=== PATIENT | male | born 1930 | race African-American/Black ===

== ENCOUNTER 2017-04-22 21:34 | Inpatient (IN) | payer BC ==
[~2017-04-22] VITALS: Ht 193 cm; Wt 91.1 kg
[~2017-04-22 21:34] MED LIST: CARB25TA PO; CYCL1PAK PO; TAMS0.4C67 PO; VESI5TAB PO; [UNRECOGNIZED DRUG - CODE] PO
[2017-04-22 21:39] VITALS: BP 116/70; PULSE 73; RESP 16; TEMP 97.8; O2SAT 96
[2017-04-22] MEDS ORDERED: MIRA50TA PO (21:57)
[2017-04-22] MEDS ORDERED: CHOL20003 PO (21:57)
[2017-04-22] MEDS ORDERED: VESI10TA PO (21:57)
[2017-04-22] MEDS ORDERED: TAMS0.4C4 PO (21:57)
[2017-04-22] MEDS ORDERED: MIDO5TAB PO (21:57)
[2017-04-22] MEDS ORDERED: RIVA3CAP PO (21:57)
[2017-04-22] MEDS ORDERED: CARB25TA9 PO (21:57)
[2017-04-22] MEDS ORDERED: CYAN1TAB24 PO (21:57)
[2017-04-22] MEDS ORDERED: SODIUM CHLORIDE 0.9% FLUSH 5 ML FLUSH IV FLUSH PRN (22:00)
[2017-04-22] MEDS ORDERED: SODIUM CHLORID 0.9% 500 ML INJ 500 ML IV ONE (22:00)
[2017-04-22 22:15] LABS: BASOPHIL % 0.8 % (0.0-2.0); EOSINOPHIL # 0.1 TH/MM3 (0-0.4); EOSINOPHIL % 2.8 % (0.0-4.0); HEMATOCRIT 32.6 % (39.0-51.0); HEMO FLAGS DIFF FINAL; LYMPH % 43.3 % (9.0-44.0); LYMPHOCYTE # 2.1 TH/MM3 (1.0-4.8); MEAN CELL VOLUME 89.2 FL (80.0-100.0); MEAN CORPUSCULAR HGB CONC 31.4 % (32.0-36.0); MONO % 11.4 % (0.0-8.0); NEUT % 41.7 % (16.0-70.0); PLATELET COUNT 143 TH/MM3 (150-450); RED BLOOD COUNT 3.65 MIL/MM3 (4.50-5.90); RED CELL DISTRIBUTION WIDTH 15.1 % (11.6-17.2); WHITE BLOOD COUNT 4.8 TH/MM3 (4.0-11.0)
[2017-04-22 22:21] LABS: BLOOD, URINE TRACE (NEG); GLUCOSE,URINE NEG (NEG); HYALINE CAST, URINE 1 /lpf (RARE); KETONE, URINE NEG (NEG); MUCUS URINE FEW /lpf (OCC); NITRITE,URINE NEG (NEG); SQUAMOUS EPITHELIAL CELL URINE <1 /hpf (0-5); URINE COLOR YELLOW (YELLW/STRAW)
[2017-04-22 22:22] LABS: COMMENT (UR) CATH-CULT NOT IND; CULTURE IF INDICATED CATH CULTURE NOT IND
[2017-04-22 22:23] LABS: APTT (PATIENT) 27.9 SEC (24.3-30.1); PROTHROMBIN TIME - PATIENT 11.2 SEC (9.8-11.6)
[2017-04-22 22:35] LABS: ALT (GPT) 9 U/L (12-78); ANION GAP 6 MEQ/L (5-15); AST (GOT) 14 U/L (15-37); BICARBONATE 28.1 MEQ/L (21.0-32.0); BLOOD UREA NITROGEN 29 MG/DL (7-18); CHLORIDE 109 MEQ/L (98-107); GLOMERULAR FILTRATION RATE 58 ML/MIN (>89); SODIUM (NA) 143 MEQ/L (136-145)
--- NOTE | 2017-04-22 22:39 | RADRPT ---
EXAM DATE/TIME: 04/22/2017 22:11 [facility] COMPARISON: CHEST SINGLE AP, August 03, 2013, 13:40. INDICATIONS : Syncope MEDICAL HISTORY : Parkinsons disease SURGICAL HISTORY : None. ENCOUNTER: Initial ACUITY: 1 day PAIN SCORE: Non-responsive. LOCATION: Bilateral chest FINDINGS: A single view of the chest demonstrates the lungs to be symmetrically aerated without evidence of mas s, infiltrate or effusion. Mild basilar atelectasis. The cardiomediastinal contours demonstrate tortu ous aorta Osseous structures are intact. CONCLUSION: 1. Minimal basilar atelectasis. Tortuous aorta. No acute findings. Fabio Macedo MD on April 22, 2017 at 22:37 Board Certified Radiologist. This report was verified electronically.
[2017-04-22 22:45] LABS: ALKALINE PHOSPHATASE 82 U/L (45-117); TOTAL BILIRUBIN ADULT 0.3 MG/DL (0.2-1.0)
[2017-04-22 22:52] LABS: CREATINE KINASE 97 U/L (39-308)
--- NOTE | 2017-04-22 23:19 | RADRPT ---
EXAM DATE/TIME: 04/22/2017 22:55 [facility] COMPARISON: CT BRAIN W/O CONTRAST, July 21, 2016, 0:35. INDICATIONS : Altered mental status. RADIATION DOSE: 23.49 CTDIvol (mGy) MEDICAL HISTORY : Cardiovascular disease. Parkinson's. Dementia. SURGICAL HISTORY : None. ENCOUNTER: Initial ACUITY: 1 day PAIN SCALE: 0/10 LOCATION: cranial TECHNIQUE: Multiple contiguous axial images were obtained of the head. Using automated exposure control and adj ustment of the mA and/or kV according to patient size, radiation dose was kept as low as reasonably a chievable to obtain optimal diagnostic quality images. FINDINGS: CEREBRUM: The ventricles are normal for age. No evidence of midline shift, mass lesion, hemorrhage or acute in farction. No extra-axial fluid collections are seen. POSTERIOR FOSSA: The cerebellum and brainstem are intact. The 4th ventricle is midline. The cerebellopontine angle i s unremarkable. EXTRACRANIAL: The visualized portion of the orbits is intact. There are multiple trainee gas collections surroundin g the right lower frontal and parietal bone and extends along the right masseter musculature and monica on of the pterygoid fossa. There are several tiny gas bubbles also noted on the left in the region of the pterygoid fossa and along the masseter muscles. There is no intracranial hemorrhage or fracture. SKULL: The calvaria is intact. No evidence of skull fracture. Opacification of several left ethmoidal air c ells is again noted. This is unchanged. CONCLUSION: 1. No intracranial hemorrhage, mass or evidence of infarction. 2. Multiple tiny gas bubbles in the soft tissues along the lower right frontal and parietal bone as w ell as along the masseter musculature and pterygoid fossa. There are several tiny gas bubbles on the left as well. This is of unclear significance but could represent infection. 3. Stable mucosal thickening in the left ethmoidal air cells. Alex Rae MD on April 22, 2017 at 23:10 Board Certified Radiologist. This report was verified electronically.
[2017-04-22 23:30] VITALS: BP 122/68; PULSE 74; RESP 16; O2SAT 96
--- NOTE | 2017-04-22 23:40 | PD ---
HPI Chief Complaint: Altered Mental Status Time Seen by Provider: 21:47 Travel History International Travel<30 days: No Contact w/Intl Traveler<30days: No Traveled to known affect area: No History of Present Illness HPI Patient is an 87-year-old male brought in by EMS after an episode of left-sided weakness and facial droop. Per EMS, he is eating dinner when he developed left arm and leg weakness as well as a left-sided facial droop and difficulty speaking. EMS arrived and he was beginning to resolve. They found him to be hypotensive, but this improved with IV fluids. Currently his symptoms have resolved and he has no complaints. His daughter says that this happened once before while they were in [place] and they were told it was due to dehydration. She says that he is very susceptible to medications due to his Parkinson's and he was recently using a cream for pain. She otherwise states that he has been in his normal state of health prior to this event. [facility] Past Medical History Arthritis: Yes Autoimmune Disease: No Anxiety: No Depression: No Heart Rhythm Problems: Yes (PVCS) Cancer: No Cardiovascular Problems: Yes High Cholesterol: No Chest Pain: No Congestive Heart Failure: No Dementia: Yes (gayathri body dementia) Diabetes: No Diminished Hearing: No Endocrine: No GERD: No Genitourinary: Yes (ENLARGED PROSTATE) Hiatal Hernia: No Immune Disorder: No Kidney Stones: No Musculoskeletal: Yes (L HIP SURGERY APRIL 06) Neurologic: No Parkinson's Disease: Yes Psychiatric: No Reproductive: No Respiratory: No Renal Failure: No Sickle Cell Disease: No Thyroid Disease: No Ulcer: No Past Surgical History Abdominal Surgery: No AICD: No Arteriovenous Shunt: No Cardiac Surgery: No Ear Surgery: No Endocrine Surgery: No Eye Surgery: Yes (BILATERAL CATARACTS, 2010) Genitourinary Surgery: No Gynecologic Surgery: No Insulin Pump: No Joint Replacement: Yes (LEFT HIP) Oral Surgery: No Pacemaker: No Thoracic Surgery: No Other Surgery: Yes Social History Alcohol Use: No Tobacco Use: No Substance Use: No Allergies-Medications (Allergen,Severity, Reaction): Coded Allergies: No Known Allergies (Unverified , 04/22/17) Reported Meds & Prescriptions Reported Meds & Active Scripts Active Reported B12 (Cyanocobalamin) 1,000 Mcg Tab 1 Tab PO DAILY D3 (Cholecalciferol) 2,000 Unit Cap 1 Cap PO DAILY Tamsulosin (Tamsulosin HCl) 0.4 Mg Cap 0.4 Mg PO BID Rivastigmine 3 Mg Cap 3 Mg PO BIDPC Midodrine 5 Mg Tab 5 Mg PO BID Carbidopa-Levodopa 25-100 Mg Tab 1 Tab PO BID Vesicare (Solifenacin) 10 Mg Tab 10 Mg PO DAILY Myrbetriq (Mirabegron) 50 Mg Tab 50 Mg PO DAILY Review of Systems Except as stated in HPI: all other systems reviewed are Neg General / Constitutional: No: Fever, Chills Eyes: No: Blurred Vision HENT: No: Headaches Cardiovascular: No: Chest Pain or Discomfort Respiratory: No: Cough, Shortness of Breath Gastrointestinal: No: Nausea, Vomiting Genitourinary: No: Dysuria Musculoskeletal: No: Myalgias Skin: No Rash, No Change in Pigmentation Neurologic: No: Weakness, Dizziness Physical Exam Narrative GENERAL: Awake and alert, no acute distress. SKIN: Focused skin assessment warm/dry. No signs of infection. HEAD: Atraumatic. Normocephalic. EYES: Pupils equal and round. No scleral icterus. Extraocular movements intact. ENT: Mucous membranes pink and moist. NECK: Trachea midline. No JVD. CARDIOVASCULAR: Regular rate and rhythm. No murmur appreciated. RESPIRATORY: No accessory muscle use. Clear to auscultation. Breath sounds equal bilaterally. GASTROINTESTINAL: Abdomen soft, non-tender, nondistended. MUSCULOSKELETAL: No obvious deformities. No clubbing. No cyanosis. No edema. NEUROLOGICAL: Awake and alert. No obvious cranial nerve deficits. Motor grossly within normal limits. Normal speech. PSYCHIATRIC: Appropriate mood and affect; insight and judgment normal. Data Data Last Documented VS Vital Signs Date Time Temp Pulse Resp B/P Pulse Ox O2 Delivery O2 Flow Rate FiO2 04/22/17 23:30 74 16 122/68 96 04/22/17 21:46 Room Air 04/22/17 21:39 97.8 Orders Ammonia (04/22/17 21:48) Complete Blood Count With Diff (04/22/17 21:48) Comprehensive Metabolic Panel (04/22/17 21:48) Creatine Kinase (Cpk) (04/22/17 21:48) Prothrombin Time / Inr (Pt) (04/22/17 21:48) Act Partial Throm Time (Ptt) (04/22/17 21:48) Troponin I (04/22/17 21:48) Thyroid Stimulating Hormone (04/22/17 21:48) Urinalysis - C+S If Indicated (04/22/17 21:48) Ua Includes Microscopic (04/22/17 21:48) Lactic Acid Sepsis Protocol (04/22/17 21:48) Chest, Single Ap (04/22/17 21:48) Ct Brain W/O Iv Contrast(Rout) (04/22/17 21:48) Blood Glucose (04/22/17 21:48) Ecg Monitoring (04/22/17 21:48) Iv Access Insert/Monitor (04/22/17 21:48) Oximetry (04/22/17 21:48) Sodium Chloride 0.9% Flush (Ns Flush) (04/22/17 22:00) Sodium Chlorid 0.9% 500 Ml Inj (Ns 500 M (04/22/17 22:00) Aspirin (Aspirin) (04/22/17 23:45) Admit Order (Ed Use Only) (04/23/17 ) Consult Neurology (04/23/17 ) Mri Brain W/O Contrast (04/23/17 ) Labs Laboratory Tests Test 04/22/17 04/22/17 21:55 22:00 White Blood Count 4.8 TH/MM3 Red Blood Count 3.65 MIL/MM3 Hemoglobin 10.2 GM/DL Hematocrit 32.6 % Mean Corpuscular Volume 89.2 FL Mean Corpuscular Hemoglobin 28.0 PG Mean Corpuscular Hemoglobin 31.4 % Concent Red Cell Distribution Width 15.1 % Platelet Count 143 TH/MM3 Mean Platelet Volume 7.2 FL Neutrophils (%) (Auto) 41.7 % Lymphocytes (%) (Auto) 43.3 % Monocytes (%) (Auto) 11.4 % Eosinophils (%) (Auto) 2.8 % Basophils (%) (Auto) 0.8 % Neutrophils # (Auto) 2.0 TH/MM3 Lymphocytes # (Auto) 2.1 TH/MM3 Monocytes # (Auto) 0.6 TH/MM3 Eosinophils # (Auto) 0.1 TH/MM3 Basophils # (Auto) 0.0 TH/MM3 CBC Comment DIFF FINAL Differential Comment Prothrombin Time 11.2 SEC Prothromb Time International 1.0 RATIO Ratio Activated Partial 27.9 SEC Thromboplast Time Sodium Level 143 MEQ/L Potassium Level 4.0 MEQ/L Chloride Level 109 MEQ/L Carbon Dioxide Level 28.1 MEQ/L Anion Gap 6 MEQ/L Blood Urea Nitrogen 29 MG/DL Creatinine 1.40 MG/DL Estimat Glomerular Filtration 58 ML/MIN Rate Random Glucose 97 MG/DL Lactic Acid Level 1.3 mmol/L Calcium Level 8.3 MG/DL Total Bilirubin 0.3 MG/DL Aspartate Amino Transf 14 U/L (AST/SGOT) Alanine Aminotransferase 9 U/L (ALT/SGPT) Alkaline Phosphatase 82 U/L Ammonia 29 MCMOL/L Total Creatine Kinase 97 U/L Troponin I LESS THAN 0.02 NG/ML Total Protein 6.2 GM/DL Albumin 3.1 GM/DL Thyroid Stimulating Hormone 1.290 uIU/ML 3rd Gen Magnesium Level 1.9 MG/DL Urine Color YELLOW Urine Turbidity CLEAR Urine pH 5.0 Urine Specific [place] 1.020 Urine Protein TRACE mg/dL Urine Glucose (UA) NEG mg/dL Urine Ketones NEG mg/dL Urine Occult Blood TRACE Urine Nitrite NEG Urine Bilirubin NEG Urine Urobilinogen LESS THAN 2.0 MG/DL Urine Leukocyte Esterase NEG Urine RBC 7 /hpf Urine WBC 1 /hpf Urine Squamous Epithelial <1 /hpf Cells Urine Hyaline Casts 1 /lpf Urine Mucus FEW /lpf Urine Sperm RARE Microscopic Urinalysis Comment CATH-CULT NOT IND MDM Medical Decision Making Medical Screen Exam Complete: Yes Emergency Medical Condition: Yes Interpretation(s) ECG shows sinus rhythm with frequent PVCs. There is no ST elevation or depression. Differential Diagnosis TIA versus stroke versus sepsis versus electrolyte abnormality Narrative Course Patient is an 87-year-old male who comes in complaining of an episode of left- sided weakness with facial droop and difficulty speaking. On arrival, patient is back to his baseline mental status. Exam shows no neurologic abnormalities. IV established, labs sent. Patient connected to the case monitor. Labs show no acute abnormalities. CT head shows no hemorrhage, no CVA. There is air near the frontal and parietal bone on the right side. It is unclear what the origin of this is. He has no outward signs of infection, no pain to the area, reports no history of trauma there. I spoke with Dr. Burrell of neurology who suggests TIA workup with MRI of the brain and carotid ultrasound. He is given an aspirin. Patient admitted for further management. Dr. Guzman advised of the CT findings. Diagnosis Primary Impression: TIA (transient ischemic attack) Qualified Code: G45.9 - Transient cerebral ischemia, unspecified type Admitting Information Admitting Physician Requests: Admit Condition: Stable Audra Hollins MD Apr 22, 2017 23:40
[2017-04-22] MEDS ORDERED: ASPIRIN 325 MG TAB PO ONE (23:45)
[2017-04-23] VITALS (9 sets, daily range): BP systolic 127–156; BP diastolic 67–92; PULSE 63–87; RESP 16–20; TEMP 95.9–98.2; O2SAT 95–99
[2017-04-23] MEDS ORDERED: NALOXONE HCL 0.4 MG/ML AMP IV PRN (00:15)
[2017-04-23] MEDS ORDERED: ACETAMINOPHEN 325 MG TAB PO PRN (00:15)
[2017-04-23] MEDS ORDERED: ONDANSETRON HCL 4 MG/2 ML VIAL IVP PRN (00:15)
[2017-04-23] MEDS ORDERED: SENNOSIDES 8.6 MG TAB PO PRN (00:15)
[2017-04-23] MEDS ORDERED: MAGNESIUM HYDROXIDE SUSP 30 ML CUP PO PRN (00:15)
[2017-04-23] MEDS ORDERED: SODIUM CHLORIDE 0.9% FLUSH 10 ML FLUSH IV FLUSH PRN (00:15)
[2017-04-23] MEDS ORDERED: BISACODYL 10 MG SUPP RECTAL PRN (00:15)
[2017-04-23] MEDS ORDERED: LACTULOSE SYRUP 20 GM/30 ML CUP PO PRN (00:15)
[2017-04-23] MEDS: HEPARIN SODIUM - SQ 10,000 UNITS/ML VIAL SQ SCH ×2 (00:46→11:59)
[2017-04-23 07:42] LABS: AUTOMATED NEUTROPHIL # 3.6 TH/MM3 (1.8-7.7); BASOPHIL % 0.6 % (0.0-2.0); EOSINOPHIL # 0.1 TH/MM3 (0-0.4); EOSINOPHIL % 2.2 % (0.0-4.0); HEMATOCRIT 30.7 % (39.0-51.0); HEMO FLAGS DIFF FINAL; LYMPHOCYTE # 1.5 TH/MM3 (1.0-4.8); MEAN CELL VOLUME 88.2 FL (80.0-100.0); MEAN CORPUSCULAR HEMOGLOBIN 28.7 PG (27.0-34.0); MEAN CORPUSCULAR HGB CONC 32.5 % (32.0-36.0); MONO % 11.1 % (0.0-8.0); NEUT % 60.1 % (16.0-70.0); PLATELET COUNT 132 TH/MM3 (150-450); RED BLOOD COUNT 3.48 MIL/MM3 (4.50-5.90)
[2017-04-23 08:06] LABS: ALT (GPT) 14 U/L (12-78); ANION GAP 6 MEQ/L (5-15); AST (GOT) 13 U/L (15-37); BICARBONATE 27.4 MEQ/L (21.0-32.0); BLOOD UREA NITROGEN 34 MG/DL (7-18); CHLORIDE 110 MEQ/L (98-107); GLOMERULAR FILTRATION RATE 72 ML/MIN (>89); SODIUM (NA) 143 MEQ/L (136-145)
[2017-04-23 08:09] LABS: ALKALINE PHOSPHATASE 88 U/L (45-117); TOTAL BILIRUBIN ADULT 0.3 MG/DL (0.2-1.0)
[2017-04-23] MEDS: MIDODRINE 5 MG TAB PO SCH ×2 (08:43→21:21)
[2017-04-23] MEDS: CHOLECALCIFEROL (VIT D3) 1000 UNIT TAB PO SCH (08:43)
[2017-04-23] MEDS: DOCUSATE SODIUM 50 MG/SENNA 8.6 MG TAB PO SCH ×2 (08:43→21:21)
[2017-04-23] MEDS: CARBIDOPA/LEVODOPA 25 MG/100 MG TAB PO SCH ×2 (08:43→21:21)
[2017-04-23] MEDS: TAMSULOSIN HCL 0.4 MG CAP PO SCH ×2 (08:43→21:21)
[2017-04-23] MEDS: SODIUM CHLORIDE 0.9% FLUSH 10 ML FLUSH IV FLUSH SCH ×2 (08:43→21:21)
[2017-04-23] MEDS: CYANOCOBALAMIN 100 MCG TAB PO SCH (09:00)
[2017-04-23] MEDS: TOLTERODINE TARTRATE 4 MG CAP LA PO SCH (09:00)
[2017-04-23] MEDS: RIVASTIGMINE 9.5 MG/24 HOUR PATCH T-DERMAL SCH (09:00)
[2017-04-23] MEDS: PT OWN MYRBETRIQ 50 MG PO SCH (09:00)
--- NOTE | 2017-04-23 09:36 | EKG ---
Date Performed: 04/22/2017 Time Performed: 21:46:04 PTAGE: 87 years EKG: Sinus rhythm WITH FREQUENT VENTRICULAR PREMATURE COMPLEXES MODERATE INTRAVENTRICULAR CONDUCTION DELAY NONSPECIFIC ST & T-WAVE ABNORMALITY ABNORMAL RHYTHM ECG PREVIOUS TRACING : 07/20/2016 23.55 DOCTOR: Henry Hernandez Interpretating Date/Time 04/23/2017 09:31:44
--- NOTE | 2017-04-23 09:53 | HHI.HP ---
History of Present Illness Service INTERNAL MEDICINE Primary Care Physician MANOLO GUZMAN MD Admission Diagnosis TIA Diagnoses: History of Present Illness This patient is an 87 year old Black male who acutely had left facial droop and difficulty for his speech. Soon after, it was noticed that he had weakness for use of the left side of his body. These occurrences happened while eating. The family noticed that he did not show any signs of improving and emergency services was called. He was found to be with low blood pressure and was given intravenous hydration. By the time he arrived to the emergency room, his blood pressure was better and the deficits were improved. He is admitted for further assessment of his status of possible T. I. A. presentation. There is denial of any recent major illness, infection or trauma. Review of Systems Gastrointestinal: COMPLAINS OF: Constipation Genitourinary: COMPLAINS OF: Urgency, Nocturia Musculoskeletal: COMPLAINS OF: Joint pain, Stiffness Past Family Social History Allergies: Coded Allergies: No Known Allergies (Unverified , 04/22/17) Past Medical History 1. Parkinson's Disease. 2. Hypertension. 3. Hyperlipidemia. 4. Paroxysmal Atrial Fibrillation. 5. Advanced Osteoarthritis. 6. Benign Prostatic Hypertrophy. 7. Chronic Constipation. 8. Vitamin D Deficiency. 9. Vitamin B12 Deficiency. Past Surgical History 1. Left Hip Replacement 2. Blateral Knee Replacements 3. Bilateral Cataract Surgery Family History Some family members with hypertension and advanced osteoarthritis. 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 He is and lives at home with his . He is a nonsmoker, but did smoke previously and discontinued cigarette use in 1960. He drinks alcohol only in limited quantity and only at very special occasions rarely. He makes no use of recreational drugs. Physical Exam Vital Signs Vital Signs Date Time Temp Pulse Resp B/P Pulse Ox O2 Delivery O2 Flow Rate FiO2 04/23/17 08:24 98.0 72 18 150/88 97 04/23/17 07:16 68 04/23/17 04:07 98.2 80 20 144/78 96 04/23/17 02:18 95.9 87 18 129/75 95 04/23/17 00:30 71 16 130/67 95 04/22/17 23:30 74 16 122/68 96 04/22/17 21:46 96 Room Air 04/22/17 21:39 97.8 73 16 116/70 96 Physical Exam GENERAL: This is a well-nourished, well-developed patient. He is alert and in no apparent distress. SKIN: No rashes, ecchymoses or lesions. Cool and dry. HEAD: Atraumatic. Normocephalic. No temporal or scalp tenderness. EYES: Pupils equal round and reactive. Extraocular motions intact. No scleral icterus. No injection or drainage. ENT: Nasal passages are clear. Throat without erythema, tonsillar hypertrophy or exudate. Uvula midline. Airway patent. Gag reflex is intact. Tongue protrudes in the midline. NECK: Trachea midline. No JVD or lymphadenopathy. Supple, nontender, no meningeal signs. No carotid bruits or jugular venous distention. CARDIOVASCULAR: Regular rate and rhythm to exam. There are no gallops, or rubs. RESPIRATORY: Clear to auscultation. Breath sounds equal bilaterally. No wheezes , rales, or rhonchi. GASTROINTESTINAL: Abdomen soft, non-tender, nondistended. No hepato-splenomegaly , or palpable masses. No guarding. MUSCULOSKELETAL: Extremities without clubbing, cyanosis, or edema. No calf tenderness. Negative Homans sign bilaterally. NEUROLOGICAL: Awake and alert. Cranial nerves II through XII intact. Motor and sensory grossly within normal limits. Five out of 5 muscle strength in all muscle groups. Normal speech. Laboratory Laboratory Tests Test 04/22/17 04/22/17 04/23/17 21:55 22:00 06:47 White Blood Count 4.8 6.0 Red Blood Count 3.65 3.48 Hemoglobin 10.2 10.0 Hematocrit 32.6 30.7 Mean Corpuscular Volume 89.2 88.2 Mean Corpuscular Hemoglobin 28.0 28.7 Mean Corpuscular Hemoglobin 31.4 32.5 Concent Red Cell Distribution Width 15.1 15.0 Platelet Count 143 132 Mean Platelet Volume 7.2 7.4 Neutrophils (%) (Auto) 41.7 60.1 Lymphocytes (%) (Auto) 43.3 26.0 Monocytes (%) (Auto) 11.4 11.1 Eosinophils (%) (Auto) 2.8 2.2 Basophils (%) (Auto) 0.8 0.6 Neutrophils # (Auto) 2.0 3.6 Lymphocytes # (Auto) 2.1 1.5 Monocytes # (Auto) 0.6 0.7 Eosinophils # (Auto) 0.1 0.1 Basophils # (Auto) 0.0 0.0 CBC Comment DIFF FINAL DIFF FINAL Differential Comment Prothrombin Time 11.2 Prothromb Time International 1.0 Ratio Activated Partial 27.9 Thromboplast Time Sodium Level 143 143 Potassium Level 4.0 4.0 Chloride Level 109 110 Carbon Dioxide Level 28.1 27.4 Anion Gap 6 6 Blood Urea Nitrogen 29 34 Creatinine 1.40 1.16 Estimat Glomerular Filtration 58 72 Rate Random Glucose 97 86 Lactic Acid Level 1.3 Calcium Level 8.3 8.6 Total Bilirubin 0.3 0.3 Aspartate Amino Transf 14 13 (AST/SGOT) Alanine Aminotransferase 9 14 (ALT/SGPT) Alkaline Phosphatase 82 88 Ammonia 29 Total Creatine Kinase 97 Troponin I LESS THAN 0.02 Total Protein 6.2 5.7 Albumin 3.1 2.8 Thyroid Stimulating Hormone 1.290 3rd Gen Magnesium Level 1.9 Urine Color YELLOW Urine Turbidity CLEAR Urine pH 5.0 Urine Specific [place] 1.020 Urine Protein TRACE Urine Glucose (UA) NEG Urine Ketones NEG Urine Occult Blood TRACE Urine Nitrite NEG Urine Bilirubin NEG Urine Urobilinogen LESS THAN 2.0 Urine Leukocyte Esterase NEG Urine RBC 7 Urine WBC 1 Urine Squamous Epithelial <1 Cells Urine Hyaline Casts 1 Urine Mucus FEW Urine Sperm RARE Microscopic Urinalysis Comment CATH-CULT NOT IND Result Diagram: 04/23/1747 04/23/1747 Assessment and Plan Assessment and Plan ASSESSMENT 1. Transient Ischemic Attack. 2. 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 3. Parkinson's Disease. 4. Chronic Constipation. 5. Benign Prostatic Hypertrophy. PLAN 1. Admit to the hospital as an Inpatient 2. MRI/MRA study of the Brain. 3. Consultation to Neurology. 4. Bedrest for now. 5. DVT and PE prophylaxis Manolo Guzman MD Apr 23, 2017 09:53
--- NOTE | 2017-04-23 10:49 | RADRPT ---
EXAM DATE/TIME: 04/23/2017 09:05 [facility] COMPARISON: MRI BRAIN W/O CONTRAST, April 07, 2012, 14:13. INDICATIONS : Left sided weakness. MEDICAL HISTORY : Dementia. Hypertension. SURGICAL HISTORY : Detached retina, orthopaedic ENCOUNTER: Initial ACUITY: 1 day PAIN SCORE: 0/10 LOCATION: Cranial TECHNIQUE: Multiplanar, multisequence MRI of the brain was performed without contrast. FINDINGS: There are minimal periventricular white matter changes evident. There is no restricted diffusion hossein dent. Ventricular size is appropriate. There are no extra-axial fluid collections appreciated. The posterior fossa is normal. The orbits and paranasal sinuses are unremarkable. CONCLUSION: Minimal periventricular white matter changes, unchanged from the comparison study. Helder Kilgore MD FACR on April 23, 2017 at 10:45 Board Certified Radiologist. This report was verified electronically.
--- NOTE | 2017-04-23 10:49 | RADRPT ---
EXAM DATE/TIME: 04/23/2017 09:05 [facility] COMPARISON: MRA BRAIN W/O CONTRAST, August 03, 2013, 10:03. INDICATIONS : Left sided weakness. MEDICAL HISTORY : Hypertension. Dementia. SURGICAL HISTORY : Detached retina, orthopaedic ENCOUNTER: Initial ACUITY: 1 day PAIN SCORE: 0/10 LOCATION: cranial Please note a normal MRA of the brain does not entirely exclude the possibility of a small aneurysm, nor the possibility of distal intracranial vessel disease. TECHNIQUE: 3D time of flight MRA was performed. Source images, multiplanar STS MIP, and 3D volume MIP reconstru ctions were reviewed. FINDINGS: There is excellent visualization of the major intracranial arteries out to the second-order branch ve ssels. There is no evidence for aneurysm, vessel truncation or stenosis, and no evidence for vascula r malformation. Minimal cavernous carotid disease is noted worse on the left than the right. CONCLUSION: Minimal cavernous carotid disease worse in the left otherwise negative. Helder Kilgore MD FACR on April 23, 2017 at 10:45 Board Certified Radiologist. This report was verified electronically.
[2017-04-23] MEDS: ASPIRIN 325 MG TAB PO SCH (15:30)
[2017-04-23] MEDS ORDERED: GLUCAGON 1 MG/ML VIAL OTHER PRN (15:30)
[2017-04-23] MEDS ORDERED: DEXTROSE 50% IN WATER 50 ML VIAL(D50) IV PUSH PRN (15:30)
[2017-04-23] MEDS ORDERED: SODIUM CHLORIDE 0.9% FLUSH 5 ML FLUSH IV FLUSH PRN (15:30)
[2017-04-23] MEDS: INSULIN ASPART SUPPLEMENTAL SCALE SQ SCH ×2 (16:00→22:00)
--- NOTE | 2017-04-23 18:06 | MB ---
cc: SAMIRA ACOSTA M.D. DATE OF CONSULTATION: 04/23/2017. REASON FOR CONSULTATION: TIA. HISTORY OF PRESENT ILLNESS: This is a pleasant 87-year-old man who presented with left facial droop, difficulty getting words out and left-sided weakness while he was eating. This has since improved. He came to the emergency room. He was found to be hypotensive and was given IV hydration. PAST MEDICAL HISTORY: 1. Parkinson's disease. 2. Hypertension. 3. Hyperlipidemia. 4. Atrial fibrillation. 5. Osteoarthritis. MEDICATIONS: Current medications are: 1. Sinemet 25/100 twice a day. 2. Midodrine 5 milligrams twice a day. 3. Exelon patch. 4. Tamsulosin. 5. B12. 6. Detrol long-acting. 7. Tylenol and Zofran PRN. 8. Subcutaneous heparin 5000 units twice a day. His EKG now is showing normal sinus rhythm. CT of the brain is normal intracranially. He did have an MRI of the brain with minimal ischemic demyelinization. No acute change present. No acute stroke. MRA brain: Minimal cavernous carotid disease left is worse. LABORATORY DATA: The white count is 6000, hemoglobin 10, hematocrit 30.7%, platelet count 132,000. PT 11.2, INR 1, APTT 27.9. Sodium is 143, potassium is 4, chloride 110, CO2 27, the BUN is 34, creatinine 1.16, GFR 72, glucose 86. Troponin less and 0.02. TSH 1.10. IMPRESSION: Probable TIA. RECOMMENDATIONS: 1. Will check carotid ultrasound and echocardiogram. 2. Monitor cardiac telemetry for now 3. Treat the patient with aspirin. 4. With the history of atrial fibrillation, there is a risk of recurrent atrial fibrillation. Consider anticoagulation; however, he would be at high risk given his Parkinson's disease and advanced age. MD KARL Sahu/GEOVANNA /3:28 PM /6:06 PM
--- NOTE | 2017-04-23 19:33 | RADRPT ---
EXAM DATE/TIME: 04/23/2017 18:53 [facility] COMPARISON: No previous studies available for comparison. INDICATIONS : Cerebrovascular accident. MEDICAL HISTORY : Dementia. Parkinson's. Arthritis. Vertigo. Cardiac disorders. PVCS. Nocturia. Enlarged prostate. 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 SURGICAL HISTORY : Bilateral cataracts. Detached left retina repair. Left hip joint replacement. Bilateral knees. Blood transfusions. ENCOUNTER: Initial ACUITY: 1 day PAIN SCORE: 0/10 LOCATION: Bilateral neck PEAK SYSTOLIC VELOCITIES (cm/sec): ICA/CCA RATIO: Right: 1.2 Left: 0.7 ICA: Right: 84 Left: 66 CCA: Right: 69 Left: 89 ECA: Right: 109 Left: 98 VERTEBRAL: Right: 49 antegrade Left: 44 antegrade Elevated flow velocities and ICA/CCA ratios have been found to correlate with increased degrees of vessel stenosis, calculated as percentage of diameter relative to a normal segment of distal ICA/CCA FINDINGS: RIGHT CAROTID: Noncalcified atheromatous plaque. Most pronounced within the ICA. No significant stenosis is visualiz ed. The waveforms are within normal limits. LEFT CAROTID: No significant stenosis is visualized. The waveforms are within normal limits. VERTEBRAL ARTERIES: Antegrade flow is seen in both vertebral arteries. MISCELLANEOUS: None. CONCLUSION: 1. Mild plaque with patent carotid arteries bilaterally. 2. Antegrade flow involving both vertebral arteries. 3. Irregular heartbeat. Mert Dalal Jr., MD on April 23, 2017 at 19:29 Board Certified Radiologist. This report was verified electronically.
[2017-04-23] MEDS: SODIUM CHLORIDE 0.9% FLUSH 5 ML FLUSH IV FLUSH SCH (21:00)
[2017-04-24] VITALS (7 sets, daily range): BP systolic 98–152; BP diastolic 62–92; PULSE 57–67; RESP 20; TEMP 95.9–98.6; O2SAT 95–98
[2017-04-24] MEDS: HEPARIN SODIUM - SQ 10,000 UNITS/ML VIAL SQ SCH ×2 (00:38→12:23)
[2017-04-24] MEDS: INSULIN ASPART SUPPLEMENTAL SCALE SQ SCH ×3 (06:36→16:00)
[2017-04-24] MEDS: TAMSULOSIN HCL 0.4 MG CAP PO SCH (08:27)
[2017-04-24] MEDS: CYANOCOBALAMIN 100 MCG TAB PO SCH (08:27)
[2017-04-24] MEDS: CARBIDOPA/LEVODOPA 25 MG/100 MG TAB PO SCH (08:27)
[2017-04-24] MEDS: CHOLECALCIFEROL (VIT D3) 1000 UNIT TAB PO SCH (08:28)
[2017-04-24] MEDS: MIDODRINE 5 MG TAB PO SCH (08:28)
[2017-04-24] MEDS: TOLTERODINE TARTRATE 4 MG CAP LA PO SCH (08:28)
[2017-04-24] MEDS: ASPIRIN 325 MG TAB PO SCH (08:28)
[2017-04-24] MEDS: DOCUSATE SODIUM 50 MG/SENNA 8.6 MG TAB PO SCH (08:29)
[2017-04-24] MEDS: SODIUM CHLORIDE 0.9% FLUSH 10 ML FLUSH IV FLUSH SCH (08:31)
[2017-04-24] MEDS: RIVASTIGMINE 9.5 MG/24 HOUR PATCH T-DERMAL SCH (08:31)
[2017-04-24] MEDS: SODIUM CHLORIDE 0.9% FLUSH 5 ML FLUSH IV FLUSH SCH (08:32)
[2017-04-24] MEDS: PT OWN MYRBETRIQ 50 MG PO SCH (09:00)
[2017-04-24 09:34] LABS: HDL CHOLESTEROL 80.7 MG/DL (40.0-60.0)
--- NOTE | 2017-04-24 11:41 | EKG ---
Date Performed: 04/23/2017 Time Performed: 22:06:03 PTAGE: 87 years EKG: Sinus rhythm WITH OCCASIONAL VENTRICULAR PREMATURE COMPLEXES INCOMPLETE RIGHT BUNDLE BRANCH BLOCK NONSPECIFIC T-W AVE ABNORMALITY Since previous tracing, no significant change noted BORDERLINE ECG PREVIOUS TRACING : 04/22/2017 21.46 DOCTOR: Scott Dotson Interpretating Date/Time 04/24/2017 11:39:20
--- NOTE | 2017-04-24 12:43 | ECHRPT ---
Indication: CVA/TIA CONCLUSIONS Normal left ventricular size. Mild concentric left ventricular hypertrophy. The left ventricular systolic function is normal with an estimated ejection fraction in the range of 55-60%. Doppler parameters are consistent with impaired left ventricular relaxtion (grade 1 diastolic dysfun ction). Trace mitral valve regurgitation. There is trace tricuspid valve regurgitation. There is estimated moderate pulmonary hypertension present (51 mmHg). The pulmonary valve is not well visualized. There is a trivial pericardial effusion present. No hemodynamically significant echocardiographic fe atures were observed (no pre-tamponade physiology). BP: 152 / 92 HR: 72 Rhythm: Other MEASUREMENTS (Male / Female) Normal Values Technical Quality:Technically difficult study 2D ECHO LV Diastolic Diameter PLAX 5.0 cm 4.2 - 5.9 / 3.9 - 5.3 cm LV Systolic Diameter PLAX 4.1 cm IVS Diastolic Thickness 1.0 cm 0.6 - 1.0 / 0.6 - 0.9 cm LVPW Diastolic Thickness 0.8 cm 0.6 - 1.0 / 0.6 - 0.9 cm LV Relative Wall Thickness 0.4 RV Internal Dim ED PLAX 2.4 cm DOPPLER AV Peak Velocity 171.0 cm/s AV Peak Gradient 11.7 mmHg LVOT Peak Velocity 100.0 cm/s LVOT Peak Gradient 4.0 mmHg Mitral E Point Velocity 71.6 cm/s Mitral A Point Velocity 104.0 cm/s Mitral E to A Ratio 0.7 LV E' Lateral Velocity 10.2 cm/s Mitral E to LV E' Lateral Ratio 7.0 LV E' Septal Velocity 8.2 cm/s Mitral E to LV E' Septal Ratio 8.7 TR Peak Velocity 319.0 cm/s TR Peak Gradient 40.7 mmHg FINDINGS LEFT VENTRICLE Normal left ventricular size. Mild concentric left ventricular hypertrophy. The left ventricular systolic function is normal with an estimated ejection fraction in the range of 55-60%. Doppler parameters are consistent with impaired left ventricular relaxtion (grade 1 diastolic dysfun ction). RIGHT VENTRICLE Normal right ventricular size and systolic function. LEFT ATRIUM The left atrial size is normal. RIGHT ATRIUM The right atrial size is normal. ATRIAL SEPTUM Normal atrial septal thickness without atrial level shunting by limited color doppler interrogation. AORTA The aortic root and proximal ascending aorta are normal in size on limited imaging. MITRAL VALVE Structurally normal mitral valve. Trace mitral valve regurgitation. AORTIC VALVE Trileaflet aortic valve. No aortic valve stenosis or regurgitation. TRICUSPID VALVE Structurally normal tricuspid valve. There is trace tricuspid valve regurgitation. There is estimated moderate pulmonary hypertension present (51 mmHg). PULMONARY VALVE The pulmonary valve is not well visualized. VESSELS The inferior vena cava is normal in size. PERICARDIUM There is a trivial pericardial effusion present. No hemodynamically significant echocardiographic fe atures were observed (no pre-tamponade physiology). Henry Hernandez MD, FACC (Electronically Signed) Final Date:24 April 2017 12:42
[2017-04-24 16:57] LABS: HEMOGLOBIN A1a 1.5 %; HEMOGLOBIN A1b 0.9 %; HEMOGLOBIN Ao 84.9 %; HEMOGLOBIN F 0.7 %; HEMOGLOBIN LA1C 1.5 %; HEMOGLOBIN P3 3.8 %
--- NOTE | 2017-04-24 17:33 | HHI.PR ---
Subjective Remarks I discussed his status with the Neurologist and decision is made for him to be placed on Plavix with low dose 81 mg Aspirin. There are no other adverse changes are reported. He is stable to go home today. Objective - Vital Signs Date Time Temp Pulse Resp B/P Pulse Ox O2 Delivery O2 Flow Rate FiO2 04/24/17 16:44 97.3 67 20 109/71 97 04/24/17 14:11 95.9 66 20 98/62 98 04/24/17 10:25 95 21 04/24/17 08:22 96.4 57 20 144/86 97 04/24/17 08:00 60 04/24/17 04:00 97.4 63 20 143/90 97 04/24/17 01:00 98.6 60 20 152/92 97 04/23/17 20:06 97.8 63 20 156/92 99 04/23/17 20:00 69 I/O 04/23/17 04/23/17 04/23/17 04/24/17 04/24/17 04/24/17 07:00 15:00 23:00 07:00 15:00 23:00 Intake Total 500 ml 360 ml 240 ml Output Total 0 ml 900 ml 400 ml 300 ml Balance 500 ml -540 ml -160 ml -300 ml Intake Oral 0 ml 360 ml 240 ml IV Total 500 ml Output Urine Total 0 ml 900 ml 400 ml 300 ml # Voids 1 1 # Bowel Movements 0 0 Result Diagram: 04/23/17 0647 04/23/17 0647 A/P Assessment and Plan ASSESSMENT 1. Transient Ischemic Attack. CURRENT STATUS IS STABLE. PLAN 1. Plavix 75 mg daily with Aspirin 81 mg daily. OKAY TO GO HOME TODAY. Manolo Guzman MD Apr 24, 2017 17:33
[2017-04-24] MEDS ORDERED: PLAV75TA29 PO (17:41)
[2017-04-25] MEDS ORDERED: CLOPIDOGREL 75 MG TAB PO SCH (09:00)
== END 2017-04-24 20:41 | disposition home or self-care (01) | DRG 69 ==
LOC: NEPC 21:34 → NEDA 04-23 00:06 → N05A 04-23 01:28
PROVIDERS: ADMIT Internal Medicine; ATTEND Internal Medicine
DX: G45.9 Transient cerebral ischemic attack, unspecified (principal); G31.83 Neurocognitive disorder with Lewy bodies; I48.0 Paroxysmal atrial fibrillation; G37.8 Other specified demyelinating diseases of central nervous system; F02.80 Dementia in other diseases classified elsewhere, unspecified severity, without behavioral disturbance, psychotic disturbance, mood disturbance, and anxiety; I10 Essential (primary) hypertension; E55.9 Vitamin D deficiency, unspecified; E53.8 Deficiency of other specified B group vitamins; R29.810 Facial weakness; D63.8 Anemia in other chronic diseases classified elsewhere; N40.0 Benign prostatic hyperplasia without lower urinary tract symptoms; E78.5 Hyperlipidemia, unspecified; K59.09 Other constipation; M62.81 Muscle weakness (generalized); M19.90 Unspecified osteoarthritis, unspecified site; Z87.891 Personal history of nicotine dependence; Z96.653 Presence of artificial knee joint, bilateral; Z96.642 Presence of left artificial hip joint
CPT/HCPCS: 70450; 70544; 70551; 71010; 80053; 80061; 81001; 82140; 82550; 82948; 83036; 83605; 83735; 84443; 84484; 85025; 85610; 85730; 93005; 93306; 93880; 96360; J1644; J7040

== ENCOUNTER 2017-06-08 21:16 | Emergency (ER) | payer MEDICARE, BC ==
[~2017-06-08] VITALS: Ht 188 cm; Wt 100.0 kg
[~2017-06-08 21:16] MED LIST changes: -CARB25TA PO; +CARB25TA9 PO; +CHOL20003 PO; +CYAN1TAB24 PO; -CYCL1PAK PO; +MIDO5TAB PO; +MIRA50TA PO; +PLAV75TA29 PO; +RIVA3CAP PO; +TAMS0.4C4 PO; -TAMS0.4C67 PO; +VESI10TA PO; -VESI5TAB PO; -[UNRECOGNIZED DRUG - CODE] PO
[2017-06-08 21:26] VITALS: BP 161/97; PULSE 72; RESP 18; O2SAT 98
[2017-06-08 21:31] VITALS: O2SAT 98
--- NOTE | 2017-06-08 21:43 | PD ---
HPI Chief Complaint: Altered Mental Status Time Seen by Provider: 21:40 Travel History International Travel<30 days: No Contact w/Intl Traveler<30days: No Traveled to known affect area: No History of Present Illness HPI 87-year-old male that presents to the ED for evaluation of possible syncope versus altered mental status. Patient apparently was acting his normal during the early he had an episode where he stopped speaking and he went interactive with anybody. Patient appeared to be very pale. Ambulance was called and when they got there his blood pressure was low. Patient was given IV fluids and for the most part came back to normal. He denies any other medical issues. He was seen here in April for a TIA had workup for this. He denies any pain of any kind. No chest pain or shortness of breath. Patient is somewhat of a poor historian and most of the history is obtained from the family. He does have a history of dementia. Patient currently back to baseline. Patient did not fell or hit his head. He does apparently take Plavix. No allergies to medication. No numbness, tilling, weakness. He does have a history of Parkinson's. PFSH Past Medical History Arthritis: Yes (KNEES) Autoimmune Disease: No Anxiety: No Depression: No Heart Rhythm Problems: Yes (PVCS) Cancer: No Cardiovascular Problems: Yes High Cholesterol: No Chest Pain: No Congestive Heart Failure: No Dementia: Yes (gayathri body dementia) Diabetes: No Diminished Hearing: No Endocrine: No Gastrointestinal Disorders: Yes GERD: No Genitourinary: Yes (ENLARGED PROSTATE) Hiatal Hernia: No Heparin Induced Thrombocytopen: No Hypertension: No Immune Disorder: No Implanted Vascular Access Dvce: No Kidney Stones: No Musculoskeletal: Yes (L HIP SURGERY APRIL 06) Neurologic: Yes (VERTIGO -- PARKINSONS) Parkinson's Disease: Yes Psychiatric: No Reproductive: No Respiratory: No Renal Failure: No Sickle Cell Disease: No Thyroid Disease: No Ulcer: No Past Surgical History Abdominal Surgery: No AICD: No Arteriovenous Shunt: No Cardiac Surgery: No Ear Surgery: No Endocrine Surgery: No Eye Surgery: Yes (BILATERAL CATARACTS, 2010) Genitourinary Surgery: No Gynecologic Surgery: No Insulin Pump: No Joint Replacement: Yes (LEFT HIP) Neurologic Surgery: No Oral Surgery: No Pacemaker: No Thoracic Surgery: No Other Surgery: Yes Social History Alcohol Use: No Tobacco Use: No Substance Use: No Allergies-Medications (Allergen,Severity, Reaction): Coded Allergies: No Known Allergies (Unverified , 04/22/17) Reported Meds & Prescriptions Reported Meds & Active Scripts Active Plavix (Clopidogrel Bisulfate) 75 Mg Tab 75 Mg PO DAILY Reported B12 (Cyanocobalamin) 1,000 Mcg Tab 1 Tab PO DAILY D3 (Cholecalciferol) 2,000 Unit Cap 1 Cap PO DAILY Tamsulosin (Tamsulosin HCl) 0.4 Mg Cap 0.4 Mg PO BID Rivastigmine 3 Mg Cap 3 Mg PO BIDPC Midodrine 5 Mg Tab 5 Mg PO BID Carbidopa-Levodopa 25-100 Mg Tab 1 Tab PO BID Vesicare (Solifenacin) 10 Mg Tab 10 Mg PO DAILY Myrbetriq (Mirabegron) 50 Mg Tab 50 Mg PO DAILY Review of Systems Except as stated in HPI: all other systems reviewed are Neg Physical Exam Narrative GENERAL: SKIN: Warm and dry. HEAD: Atraumatic. Normocephalic. EYES: Pupils equal and round 4 mm reactive to light and accommodation. No scleral icterus. No injection or drainage. ENT: No nasal bleeding or discharge. Mucous membranes pink and moist. Tongue is midline. No uvula deviation. NECK: Trachea midline. No JVD. CARDIOVASCULAR: Regular rate and rhythm. No murmurs, S3, S4. RESPIRATORY: No accessory muscle use. Clear to auscultation. Breath sounds equal bilaterally. GASTROINTESTINAL: Abdomen soft, non-tender, nondistended. Hepatic and splenic margins not palpable. MUSCULOSKELETAL: Extremities without clubbing, cyanosis, or edema. No obvious deformities. Full range of motion of the upper and lower extremities bilaterally. 2+ pulses bilaterally. NEUROLOGICAL: Awake and alert. No obvious cranial nerve deficits. Motor grossly within normal limits. Five out of 5 muscle strength in the arms and legs. Normal speech. PSYCHIATRIC: Appropriate mood and affect; insight and judgment normal. Data Data Last Documented VS Vital Signs Date Time Temp Pulse Resp B/P Pulse Ox O2 Delivery O2 Flow Rate FiO2 06/08/17 21:31 98 Room Air 06/08/17 21:26 72 18 161/97 Orders Electrocardiogram (06/08/17 21:27) Complete Blood Count With Diff (06/08/17 21:27) Comprehensive Metabolic Panel (06/08/17 21:27) Ckmb (Isoenzyme) Profile (06/08/17 21:27) Troponin I (06/08/17 21:27) Prothrombin Time / Inr (Pt) (06/08/17 21:27) Act Partial Throm Time (Ptt) (06/08/17 21:27) Urinalysis - C+S If Indicated (06/08/17 21:27) Magnesium (Mg) (06/08/17 21:27) Thyroid Stimulating Hormone (06/08/17 21:27) Chest, Single Ap (06/08/17 21:27) Ct Brain W/O Iv Contrast(Rout) (06/08/17 21:27) Iv Access Insert/Monitor (06/08/17 21:27) Ecg Monitoring (06/08/17:) Oximetry (06/08/17:) Labs Laboratory Tests Test 06/08/17 21:40 White Blood Count 5.9 TH/MM3 Red Blood Count 3.73 MIL/MM3 Hemoglobin 10.8 GM/DL Hematocrit 33.6 % Mean Corpuscular Volume 90.1 FL Mean Corpuscular Hemoglobin 28.9 PG Mean Corpuscular Hemoglobin 32.1 % Concent Red Cell Distribution Width 15.0 % Platelet Count 161 TH/MM3 Mean Platelet Volume 7.1 FL Neutrophils (%) (Auto) 50.7 % Lymphocytes (%) (Auto) 35.4 % Monocytes (%) (Auto) 10.6 % Eosinophils (%) (Auto) 2.4 % Basophils (%) (Auto) 0.9 % Neutrophils # (Auto) 3.0 TH/MM3 Lymphocytes # (Auto) 2.1 TH/MM3 Monocytes # (Auto) 0.6 TH/MM3 Eosinophils # (Auto) 0.1 TH/MM3 Basophils # (Auto) 0.1 TH/MM3 CBC Comment DIFF FINAL Differential Comment Prothrombin Time 11.2 SEC Prothromb Time International 1.0 RATIO Ratio Activated Partial 27.4 SEC Thromboplast Time MDM Medical Decision Making Medical Screen Exam Complete: Yes Emergency Medical Condition: Yes Medical Record Reviewed: Yes Interpretation(s) EKG shows sinus rhythm with some bigeminy and otherwise unremarkable. No sign of ischemia. Read by me and attending. Differential Diagnosis Syncope versus altered mental status versus TIA versus CVA versus hypotension Narrative Course 87-year-old male that presents to the ED for evaluation of possible syncope. Patient was properly examined and was found to have signs and symptoms consistent with possible syncope from hypotension. probably related to hypotension. Patient appears to be back to baseline. Labs and imaging ordered. He does take Plavix. No head injury. Labs and imaging results still pending. Will sign out to my attending pending results and disposition. Jose Maria Phillips Jun 08, 2017 21:43
--- NOTE | 2017-06-08 21:57 | RADRPT ---
EXAM DATE/TIME: 06/08/2017 21:24 [facility] COMPARISON: CHEST SINGLE AP, April 22, 2017, 22:11. INDICATIONS : Syncope MEDICAL HISTORY : Parkinsons disease SURGICAL HISTORY : None. ENCOUNTER: Initial ACUITY: 1 day PAIN SCORE: 0/10 LOCATION: chest FINDINGS: A single view of the chest demonstrates tortuous aorta. No focal consolidation or significant effusio n. No pneumothorax. CONCLUSION: 1. Tortuous aorta. Minimal basal atelectasis. No effusion or pneumothorax. Fabio Macedo MD on June 08, 2017 at 21:55 Board Certified Radiologist. This report was verified electronically.
[2017-06-08 22:15] LABS: BASOPHIL # 0.1 TH/MM3 (0-0.2); BASOPHIL % 0.9 % (0.0-2.0); EOSINOPHIL # 0.1 TH/MM3 (0-0.4); EOSINOPHIL % 2.4 % (0.0-4.0); HEMATOCRIT 33.6 % (39.0-51.0); HEMO FLAGS DIFF FINAL; LYMPH % 35.4 % (9.0-44.0); LYMPHOCYTE # 2.1 TH/MM3 (1.0-4.8); MEAN CELL VOLUME 90.1 FL (80.0-100.0); MEAN CORPUSCULAR HEMOGLOBIN 28.9 PG (27.0-34.0); MEAN CORPUSCULAR HGB CONC 32.1 % (32.0-36.0); MONO % 10.6 % (0.0-8.0); NEUT % 50.7 % (16.0-70.0); PLATELET COUNT 161 TH/MM3 (150-450); RED BLOOD COUNT 3.73 MIL/MM3 (4.50-5.90); WHITE BLOOD COUNT 5.9 TH/MM3 (4.0-11.0)
[2017-06-08 22:26] LABS: APTT (PATIENT) 27.4 SEC (24.3-30.1); PROTHROMBIN TIME - PATIENT 11.2 SEC (9.8-11.6)
[2017-06-08 22:37] LABS: ALT (GPT) 6 U/L (12-78); ANION GAP 9 MEQ/L (5-15); AST (GOT) 14 U/L (15-37); BICARBONATE 24.7 MEQ/L (21.0-32.0); BLOOD UREA NITROGEN 32 MG/DL (7-18); CHLORIDE 105 MEQ/L (98-107); GLOMERULAR FILTRATION RATE 51 ML/MIN (>89); MAGNESIUM 2.2 MG/DL (1.5-2.5); POTASSIUM 4.4 MEQ/L (3.5-5.1); SODIUM (NA) 139 MEQ/L (136-145)
--- NOTE | 2017-06-08 22:42 | RADRPT ---
EXAM DATE/TIME: 06/08/2017 22:19 [facility] COMPARISON: CT BRAIN W/O CONTRAST, April 22, 2017, 22:55. INDICATIONS : Syncopal episode. Altered mental status. RADIATION DOSE: 56.35 CTDIvol (mGy) MEDICAL HISTORY : Dementia. Parkinsons. SURGICAL HISTORY : None. ENCOUNTER: Initial ACUITY: 1 day PAIN SCALE: 0/10 LOCATION: cranial TECHNIQUE: Multiple contiguous axial images were obtained of the head. Using automated exposure control and adj ustment of the mA and/or kV according to patient size, radiation dose was kept as low as reasonably a chievable to obtain optimal diagnostic quality images. DICOM format image data is available electro nically for review and comparison. FINDINGS: CEREBRUM: The ventricles are normal for age. No evidence of midline shift, mass lesion, hemorrhage or acute in farction. No extra-axial fluid collections are seen. POSTERIOR FOSSA: The cerebellum and brainstem are intact. The 4th ventricle is midline. The cerebellopontine angle i s unremarkable. EXTRACRANIAL: The visualized portion of the orbits is intact. SKULL: The calvaria is intact. No evidence of skull fracture. CONCLUSION: 1. No acute intracranial abnormalities. Because of thickening left ethmoid air cells. Fabio Macedo MD on June 08, 2017 at 22:39 Board Certified Radiologist. This report was verified electronically.
[2017-06-08 22:47] LABS: ALKALINE PHOSPHATASE 91 U/L (45-117); CREATINE KINASE 122 U/L (39-308); TOTAL BILIRUBIN ADULT 0.3 MG/DL (0.2-1.0)
[2017-06-08 23:00] LABS: CKMB 1.3 NG/ML (0.5-3.6)
[2017-06-08 23:03] VITALS: BP_SYST 125; BP_SYST 126; BP_DIAS 62; BP_DIAS 71; RESP 16
[2017-06-09 00:10] LABS: BLOOD, URINE TRACE (NEG); COMMENT (UR) CULT NOT INDICATED; CULTURE IF INDICATED CULT NOT INDICATED; GLUCOSE,URINE NEG (NEG); KETONE, URINE NEG (NEG); MUCUS URINE FEW /lpf (OCC); NITRITE,URINE NEG (NEG); PH, URINE 5.5 (5.0-8.5); SQUAMOUS EPITHELIAL CELL URINE <1 /hpf (0-5); URINE COLOR YELLOW (YELLW/STRAW)
--- NOTE | 2017-06-09 00:24 | PD ---
Physical Exam Date Seen by Provider: Jun 09, 2017 Narrative Care was assumed from JASON De La Garza at 11 PM pending workup. Family reports that the patient is back to baseline. They would like to take him home. They state that he has had episodes like this before. They have a good relationship with his primary care provider and can follow up in the near future with him. Data Data Last Documented VS Vital Signs Date Time Temp Pulse Resp B/P Pulse Ox O2 Delivery O2 Flow Rate FiO2 06/08/17 23:03 70 16 126/62 73 16 128/73 88 16 125/71 06/08/17 21:31 98 Room Air Orders Electrocardiogram (06/08/17 21:27) Complete Blood Count With Diff (06/08/17 21:27) Comprehensive Metabolic Panel (06/08/17 21:27) Ckmb (Isoenzyme) Profile (06/08/17 21:27) Troponin I (06/08/17 21:27) Prothrombin Time / Inr (Pt) (06/08/17 21:27) Act Partial Throm Time (Ptt) (06/08/17 21:27) Urinalysis - C+S If Indicated (06/08/17 21:27) Magnesium (Mg) (06/08/17 21:27) Thyroid Stimulating Hormone (06/08/17 21:27) Chest, Single Ap (06/08/17 21:27) Ct Brain W/O Iv Contrast(Rout) (06/08/17 21:27) Iv Access Insert/Monitor (06/08/17 21:27) Ecg Monitoring (06/08/17 21:27) Oximetry (06/08/17 21:27) Orthostatic Vital Signs (06/08/17 22:27) CKMB (06/08/17 21:40) CKMB% (06/08/17 21:40) Labs Laboratory Tests Test 06/08/17 06/08/17 21:40 23:46 White Blood Count 5.9 TH/MM3 Red Blood Count 3.73 MIL/MM3 Hemoglobin 10.8 GM/DL Hematocrit 33.6 % Mean Corpuscular Volume 90.1 FL Mean Corpuscular Hemoglobin 28.9 PG Mean Corpuscular Hemoglobin 32.1 % Concent Red Cell Distribution Width 15.0 % Platelet Count 161 TH/MM3 Mean Platelet Volume 7.1 FL Neutrophils (%) (Auto) 50.7 % Lymphocytes (%) (Auto) 35.4 % Monocytes (%) (Auto) 10.6 % Eosinophils (%) (Auto) 2.4 % Basophils (%) (Auto) 0.9 % Neutrophils # (Auto) 3.0 TH/MM3 Lymphocytes # (Auto) 2.1 TH/MM3 Monocytes # (Auto) 0.6 TH/MM3 Eosinophils # (Auto) 0.1 TH/MM3 Basophils # (Auto) 0.1 TH/MM3 CBC Comment DIFF FINAL Differential Comment Prothrombin Time 11.2 SEC Prothromb Time International 1.0 RATIO Ratio Activated Partial 27.4 SEC Thromboplast Time Sodium Level 139 MEQ/L Potassium Level 4.4 MEQ/L Chloride Level 105 MEQ/L Carbon Dioxide Level 24.7 MEQ/L Anion Gap 9 MEQ/L Blood Urea Nitrogen 32 MG/DL Creatinine 1.58 MG/DL Estimat Glomerular Filtration 51 ML/MIN Rate Random Glucose 100 MG/DL Calcium Level 8.9 MG/DL Magnesium Level 2.2 MG/DL Total Bilirubin 0.3 MG/DL Aspartate Amino Transf 14 U/L (AST/SGOT) Alanine Aminotransferase 6 U/L (ALT/SGPT) Alkaline Phosphatase 91 U/L Total Creatine Kinase 122 U/L Creatine Kinase MB 1.3 NG/ML Troponin I LESS THAN 0.02 NG/ML Total Protein 6.9 GM/DL Albumin 3.4 GM/DL Thyroid Stimulating Hormone 1.650 uIU/ML 3rd Gen Urine Color YELLOW Urine Turbidity CLEAR Urine pH 5.5 Urine Specific Jenkins 1.015 Urine Protein NEG mg/dL Urine Glucose (UA) NEG mg/dL Urine Ketones NEG mg/dL Urine Occult Blood TRACE Urine Nitrite NEG Urine Bilirubin NEG Urine Urobilinogen LESS THAN 2.0 MG/DL Urine Leukocyte Esterase NEG Urine RBC 3 /hpf Urine WBC 1 /hpf Urine Squamous Epithelial <1 /hpf Cells Urine Mucus FEW /lpf Microscopic Urinalysis Comment CULT NOT INDICATED MDM Supervised Visit with GIANLUCA: Yes Differential Diagnosis My differential diagnosis of syncope includes but is not limited to cardiac arrhythmia, hypovolemia, anemia, neurological catastrophe, vasovagal response Narrative Course Patient presented for the evaluation of syncope. The symptoms quickly resolved with fluids. The patient has been back to baseline since he was fluid resuscitated in the field. I, Dr. Yoder, have reviewed the advance practice practitioner's documentation and am in agreement, met with the patient face to face, made the diagnosis, and the medical decision making was done by me. *My assessment and Findings: Patient is now sleeping in no distress. CBC & BMP Diagram 06/08/17 21:[address] [id number] Signed Impressions: Service Date/Time: , June 08, 2017 22:19 - CONCLUSION: 1. No acute intracranial abnormalities. Because of thickening left ethmoid air cells. Fabio Macedo MD Chest X-Ray [id number] Signed Impressions: Service Date/Time: , June 08, 2017 21:24 - CONCLUSION: 1. Tortuous aorta. Minimal basal atelectasis. No effusion or pneumothorax. Fabio Macedo MD Liver function studies are normal. Cardiac enzymes are negative. UA is negative for infection. Disposition was discussed with the family. They would like to take him home. Diagnosis Primary Impression: Syncope Qualified Code: R55 - Syncope, unspecified syncope type Additional Impression: Hypotension Qualified Code: I95.0 - Idiopathic hypotension Disposition: DISCHARGE HOME Condition: Stable Anum Yoder MD Jun 09, 2017 00:24
--- NOTE | 2017-06-09 07:55 | EKG ---
Date Performed: 06/08/2017 Time Performed: 21:29:56 PTAGE: 87 years EKG: Baseline artifact present probable Sinus rhythm WITH FREQUENT VENTRICULAR PREMATURE COMPLEXES BORDERLINE LEFT AXIS DEVIATION INCOMPLETE RIGHT BUNDLE BRANCH BLOCK MINIMAL VOLTAGE CRITERIA FOR LVH, CONSIDER NORMAL VARIANT NONSPECIFIC T-WAVE ABNORMALIT Y ABNORMAL RHYTHM ECG No significant change from prior electrocardiogram. PREVIOUS TRACING : 04/23/2017 22.06 DOCTOR: Abundio Batista Interpretating Date/Time 06/09/2017 07:54:15
== END 2017-06-09 01:12 | disposition home or self-care (01) ==
LOC: NEPE 21:16
DX: R55 Syncope and collapse (principal); I95.0 Idiopathic hypotension; G20 Parkinson's disease; F02.80 Dementia in other diseases classified elsewhere, unspecified severity, without behavioral disturbance, psychotic disturbance, mood disturbance, and anxiety; M13.869 Other specified arthritis, unspecified knee; N40.0 Benign prostatic hyperplasia without lower urinary tract symptoms; I45.19 Other right bundle-branch block; R94.31 Abnormal electrocardiogram [ECG] [EKG]; Z79.02 Long term (current) use of antithrombotics/antiplatelets
CPT/HCPCS: 70450; 71010; 80053; 81001; 82550; 82552; 83735; 84443; 84484; 85025; 85610; 85730; 93005

== ENCOUNTER 2017-06-11 16:36 | Emergency (ER) | payer MEDICARE, BC ==
[~2017-06-11] VITALS: Ht 193 cm; Wt 110.0 kg
[2017-06-11 16:53] VITALS: BP 141/69; PULSE 67; RESP 18; TEMP 98.7; O2SAT 100
[2017-06-11 16:59] VITALS: RESP 18; O2SAT 100
[2017-06-11] MEDS ORDERED: SODIUM CHLORIDE 0.9% FLUSH 10 ML FLUSH IVF PRN (17:00)
--- NOTE | 2017-06-11 17:15 | PD ---
HPI Chief Complaint: Altered Mental Status Time Seen by Provider: 16:50 Travel History International Travel<30 days: No Contact w/Intl Traveler<30days: No Traveled to known affect area: No History of Present Illness HPI 87-year-old male presents by ambulance after he had an episode of hypotension where on scene his systolic was in the 70s and he was acting confused. In route after he received IV fluid hydration his blood pressure improved and he was a GCS of 15. Patient does not recall event. Patient was recently here for a syncopal episode and he states that he has these a lot. He states he had an extensive workup in [place] before without significant findings. History is limited as he does not recall event. PFSH Past Medical History Narrative Medical by records Arthritis: Yes (KNEES) Autoimmune Disease: No Anxiety: No Depression: No Heart Rhythm Problems: Yes (PVCS) Cancer: No Cardiovascular Problems: Yes High Cholesterol: No Chest Pain: No Congestive Heart Failure: No Dementia: Yes (gayathri body dementia) Diabetes: No Diminished Hearing: No Endocrine: No Gastrointestinal Disorders: Yes GERD: No Genitourinary: Yes (ENLARGED PROSTATE) Hiatal Hernia: No Heparin Induced Thrombocytopen: No Hypertension: No Immune Disorder: No Implanted Vascular Access Dvce: No Kidney Stones: No Musculoskeletal: Yes (L HIP SURGERY APRIL 06) Neurologic: Yes (VERTIGO -- PARKINSONS) Parkinson's Disease: Yes Psychiatric: No Reproductive: No Respiratory: No Renal Failure: No Sickle Cell Disease: No Thyroid Disease: No Ulcer: No Tetanus Vaccination: > 5 Years Influenza Vaccination: No Past Surgical History Narrative Surgical by records Abdominal Surgery: No AICD: No Arteriovenous Shunt: No Cardiac Surgery: No Ear Surgery: No Endocrine Surgery: No Eye Surgery: Yes (BILATERAL CATARACTS, 2010) Genitourinary Surgery: No Gynecologic Surgery: No Insulin Pump: No Joint Replacement: Yes (LEFT HIP) Neurologic Surgery: No Oral Surgery: No Pacemaker: No Thoracic Surgery: No Other Surgery: Yes Social History Narrative Social History by records Alcohol Use: Yes (OCCAS) Tobacco Use: No Substance Use: No Allergies-Medications (Allergen,Severity, Reaction): Coded Allergies: No Known Allergies (Unverified , 06/11/17) Reported Meds & Prescriptions Reported Meds & Active Scripts Active Plavix (Clopidogrel Bisulfate) 75 Mg Tab 75 Mg PO DAILY Reported B12 (Cyanocobalamin) 1,000 Mcg Tab 1 Tab PO DAILY D3 (Cholecalciferol) 2,000 Unit Cap 1 Cap PO DAILY Tamsulosin (Tamsulosin HCl) 0.4 Mg Cap 0.4 Mg PO BID Rivastigmine 3 Mg Cap 3 Mg PO BIDPC Midodrine 5 Mg Tab 5 Mg PO BID Carbidopa-Levodopa 25-100 Mg Tab 1 Tab PO BID Vesicare (Solifenacin) 10 Mg Tab 10 Mg PO DAILY Myrbetriq (Mirabegron) 50 Mg Tab 50 Mg PO DAILY Review of Systems ROS Limitations: Poor Historian Except as stated in HPI: all other systems reviewed are Neg Physical Exam Narrative GENERAL: Well-nourished, well-developed patient. well appearing SKIN: Warm and dry. HEAD: Normocephalic and atraumatic. EYES: No injection or drainage. ENT: No nasal drainage noted. NECK: Supple, trachea midline. CARDIOVASCULAR: Regular rate and rhythm RESPIRATORY: no increased effort. No accessory muscle use. GASTROINTESTINAL: Abdomen soft, non-tender, nondistended. EXTREMITIES: No edema. NEUROLOGICAL: Awake. Motor and sensory grossly within normal limits. Normal speech. Data Data Last Documented VS Vital Signs Date Time Temp Pulse Resp B/P Pulse Ox O2 Delivery O2 Flow Rate FiO2 06/11/17 18:25 74 18 154/68 97 Room Air 06/11/17 16:53 98.7 Orders Electrocardiogram (06/11/17 16:51) Complete Blood Count With Diff (06/11/17 16:51) Comprehensive Metabolic Panel (06/11/17 16:51) Magnesium (Mg) (06/11/17 16:51) Ckmb (Isoenzyme) Profile (06/11/17 16:51) Troponin I (06/11/17 16:51) Act Partial Throm Time (Ptt) (06/11/17 16:51) Prothrombin Time / Inr (Pt) (06/11/17 16:51) Urinalysis - C+S If Indicated (06/11/17 16:51) Chest, Single Ap (06/11/17 16:51) Ecg Monitoring (06/11/17 16:51) Iv Access Insert/Monitor (06/11/17 16:51) Oximetry (06/11/17 16:51) Sodium Chloride 0.9% Flush (Ns Flush) (06/11/17 17:00) CKMB (06/11/17 17:05) CKMB% (06/11/17 17:05) Cath For Specimen (06/11/17 18:16) Labs Laboratory Tests Test 06/11/17 06/11/17 17:05 18:10 White Blood Count 4.9 TH/MM3 Red Blood Count 3.53 MIL/MM3 Hemoglobin 10.5 GM/DL Hematocrit 31.2 % Mean Corpuscular Volume 88.4 FL Mean Corpuscular Hemoglobin 29.7 PG Mean Corpuscular Hemoglobin 33.6 % Concent Red Cell Distribution Width 15.0 % Platelet Count 150 TH/MM3 Mean Platelet Volume 7.2 FL Neutrophils (%) (Auto) 49.4 % Lymphocytes (%) (Auto) 34.1 % Monocytes (%) (Auto) 13.7 % Eosinophils (%) (Auto) 2.0 % Basophils (%) (Auto) 0.8 % Neutrophils # (Auto) 2.4 TH/MM3 Lymphocytes # (Auto) 1.7 TH/MM3 Monocytes # (Auto) 0.7 TH/MM3 Eosinophils # (Auto) 0.1 TH/MM3 Basophils # (Auto) 0.0 TH/MM3 CBC Comment DIFF FINAL Differential Comment Prothrombin Time 11.3 SEC Prothromb Time International 1.0 RATIO Ratio Activated Partial 27.8 SEC Thromboplast Time Sodium Level 139 MEQ/L Potassium Level 4.2 MEQ/L Chloride Level 105 MEQ/L Carbon Dioxide Level 27.3 MEQ/L Anion Gap 7 MEQ/L Blood Urea Nitrogen 23 MG/DL Creatinine 1.34 MG/DL Estimat Glomerular Filtration 61 ML/MIN Rate Random Glucose 97 MG/DL Calcium Level 8.3 MG/DL Magnesium Level 2.1 MG/DL Total Bilirubin 0.3 MG/DL Aspartate Amino Transf 13 U/L (AST/SGOT) Alanine Aminotransferase 8 U/L (ALT/SGPT) Alkaline Phosphatase 93 U/L Total Creatine Kinase 108 U/L Creatine Kinase MB 1.2 NG/ML Troponin I LESS THAN 0.02 NG/ML Total Protein 6.5 GM/DL Albumin 3.2 GM/DL Urine Color YELLOW Urine Turbidity CLEAR Urine pH 5.5 Urine Specific [place] 1.011 Urine Protein NEG mg/dL Urine Glucose (UA) NEG mg/dL Urine Ketones NEG mg/dL Urine Occult Blood NEG Urine Nitrite NEG Urine Bilirubin NEG Urine Urobilinogen LESS THAN 2.0 MG/DL Urine Leukocyte Esterase NEG Urine RBC 2 /hpf Urine WBC 1 /hpf Urine Squamous Epithelial <1 /hpf Cells Urine Hyaline Casts 5 /lpf Urine Mucus FEW /lpf Microscopic Urinalysis Comment CULT NOT INDICATED MDM Medical Decision Making Medical Screen Exam Complete: Yes Emergency Medical Condition: Yes Medical Record Reviewed: Yes (pmh confirmed) Interpretation(s) EKG is sinus rhythm with PVCs without STEMI criteria CBC & BMP Diagram 06/11/17 17:05 Last 24 hours Impressions Chest X-Ray 06/11/17 1651 Signed Impressions: Service Date/Time: Monday, June 11, 2017 16:51 - CONCLUSION: The lungs are clear. Mert Clarke MD ua no acute Differential Diagnosis Anemia, UTI, renal failure, vasovagal Narrative Course Will check blood work, urinalysis and monitor ed workup no acute, blood pressure stable here, lengthy discussion with family at bedside and offered observation versus close follow-up and they are preferring close follow-up, Patient denies any new complaints and states that they are feeling better. Patient happy with care, all questions answered. Patient knows that follow up is incumbent on them and to return to the emergency room immediately if new or worsening symptoms develop. Patient given strict return precautions, vitals reviewed and are normal, agrees to further workup as an outpatient. Diagnosis Primary Impression: Near syncope Patient Instructions: General Instructions Additional Instructions: return as needed, keep blood pressure log, follow with primary tommorrow Med/Other Pt SpecificInfo: No Change to Meds Disposition: 01 DISCHARGE HOME Condition: Stable Rimma Correa MD Jun 11, 2017 17:15
--- NOTE | 2017-06-11 17:22 | RADRPT ---
EXAM DATE/TIME: 06/11/2017 16:51 [facility] COMPARISON: CHEST SINGLE AP, April 22, 2017, 22:11. CHEST SINGLE AP, June 08, 2017, 21:24. INDICATIONS : Palpitations. MEDICAL HISTORY : Parkinsons disease. SURGICAL HISTORY : None. ENCOUNTER: Initial ACUITY: 1 day PAIN SCORE: 0/10 LOCATION: Bilateral chest FINDINGS: A single view of the chest demonstrates the lungs to be symmetrically aerated without evidence of mas s, infiltrate or effusion. The cardiomediastinal contours are stable with normal cardiac size and to rtuous descending thoracic aorta. Both hemidiaphragms are well delineated. Osseous structures are i ntact. CONCLUSION: The lungs are clear. Mert Clarke MD on June 11, 2017 at 17:19 Board Certified Radiologist. This report was verified electronically.
[2017-06-11 17:32] LABS: AUTOMATED NEUTROPHIL # 2.4 TH/MM3 (1.8-7.7); BASOPHIL % 0.8 % (0.0-2.0); EOSINOPHIL # 0.1 TH/MM3 (0-0.4); HEMATOCRIT 31.2 % (39.0-51.0); HEMO FLAGS DIFF FINAL; LYMPH % 34.1 % (9.0-44.0); LYMPHOCYTE # 1.7 TH/MM3 (1.0-4.8); MEAN CELL VOLUME 88.4 FL (80.0-100.0); MEAN CORPUSCULAR HEMOGLOBIN 29.7 PG (27.0-34.0); MEAN CORPUSCULAR HGB CONC 33.6 % (32.0-36.0); MONO % 13.7 % (0.0-8.0); NEUT % 49.4 % (16.0-70.0); PLATELET COUNT 150 TH/MM3 (150-450); RED BLOOD COUNT 3.53 MIL/MM3 (4.50-5.90); WHITE BLOOD COUNT 4.9 TH/MM3 (4.0-11.0)
[2017-06-11 17:44] LABS: APTT (PATIENT) 27.8 SEC (24.3-30.1); PROTHROMBIN TIME - PATIENT 11.3 SEC (9.8-11.6)
[2017-06-11 17:46] LABS: ALT (GPT) 8 U/L (12-78); ANION GAP 7 MEQ/L (5-15); AST (GOT) 13 U/L (15-37); BICARBONATE 27.3 MEQ/L (21.0-32.0); BLOOD UREA NITROGEN 23 MG/DL (7-18); CHLORIDE 105 MEQ/L (98-107); GLOMERULAR FILTRATION RATE 61 ML/MIN (>89); MAGNESIUM 2.1 MG/DL (1.5-2.5); POTASSIUM 4.2 MEQ/L (3.5-5.1); SODIUM (NA) 139 MEQ/L (136-145)
[2017-06-11 17:50] LABS: ALKALINE PHOSPHATASE 93 U/L (45-117); CREATINE KINASE 108 U/L (39-308); TOTAL BILIRUBIN ADULT 0.3 MG/DL (0.2-1.0)
[2017-06-11 18:02] LABS: CKMB 1.2 NG/ML (0.5-3.6)
[2017-06-11 18:25] VITALS: BP 154/68; PULSE 74; RESP 18; O2SAT 97
[2017-06-11 18:38] LABS: BLOOD, URINE NEG (NEG); COMMENT (UR) CULT NOT INDICATED; CULTURE IF INDICATED CULT NOT INDICATED; GLUCOSE,URINE NEG (NEG); HYALINE CAST, URINE 5 /lpf (RARE); KETONE, URINE NEG (NEG); MUCUS URINE FEW /lpf (OCC); NITRITE,URINE NEG (NEG); PH, URINE 5.5 (5.0-8.5); SQUAMOUS EPITHELIAL CELL URINE <1 /hpf (0-5); URINE COLOR YELLOW (YELLW/STRAW)
--- NOTE | 2017-06-12 15:34 | EKG ---
Date Performed: 06/11/2017 Time Performed: 16:47:44 PTAGE: 87 years EKG: SINUS BRADYCARDIA WITH FREQUENT VENTRICULAR PREMATURE COMPLEXES MODERATE INTRAVENTRICULAR C ONDUCTION DELAY NONSPECIFIC T-WAVE ABNORMALITY PROLONGED QT INTERVAL Baseline artifact present. Likel y no significant change from prior other than slower rate. ABNORMAL ECG PREVIOUS TRACING : 06/08/2017 21.29 DOCTOR: Pablo Sanchez Interpretating Date/Time 06/12/2017 15:33:08
== END 2017-06-11 19:23 | disposition home or self-care (01) ==
LOC: NEPE 16:36
DX: R55 Syncope and collapse (principal); G31.83 Neurocognitive disorder with Lewy bodies; F02.80 Dementia in other diseases classified elsewhere, unspecified severity, without behavioral disturbance, psychotic disturbance, mood disturbance, and anxiety; Z79.899 Other long term (current) drug therapy
CPT/HCPCS: 71010; 80053; 81001; 82550; 82552; 83735; 84484; 85025; 85610; 85730; 93005; 99285